=== PATIENT | male | born 1960 | race Caucasian/White ===

== ENCOUNTER 2017-03-19 12:29 | Outpatient (CLI) | payer MEDICARE, OTHER ==
[2017-03-19 12:51] LABS: BASOPHILS % (AUTO) 0.3 %; EOSINOPHILS # (AUTO) 0.4 10^3/uL (0.0-0.7); EOSINOPHILS % (AUTO) 5.2 %; HGB - HEMOGLOBIN 13.6 g/dL (14.0-18.0); LYMPHOCYTES # (AUTO) 1.9 10^3/uL (1.5-3.5); LYMPHOCYTES % (AUTO) 26.2 %; MEAN CORPUSCULAR HEMOGLOBIN 29.3 pg (27.0-31.0); MEAN CORPUSCULAR HGB CONC 33.6 g/dL (32.0-36.0); MEAN CORPUSCULAR VOLUME 87.1 fL (80.0-94.0); MEAN PLATELET VOLUME 7.9 fL (7.4-11.4); MONOCYTES # (AUTO) 0.6 10^3/uL (0.0-1.0); MONOCYTES % (AUTO) 8.8 %; NEUTROPHILS # (AUTO) 4.4 10^3/uL (1.5-6.6); NEUTROPHILS % (AUTO) 59.5 %; PLT - PLATELET COUNT 214 10^3/uL (130-450); RED BLOOD COUNT 4.66 10^6/uL (4.70-6.10); RED CELL DISTRIBUTION WIDTH 14.2 % (12.0-15.0); WHITE BLOOD COUNT 7.3 x10^3/uL (4.8-10.8)
[2017-03-19 13:03] LABS: ALBUMIN 4.4 g/dL (3.2-5.5); ALBUMIN/GLOBULIN RATIO 1.3 (1.0-2.2); BILIRUBIN,TOTAL 0.2 mg/dL (0.2-1.0); CALCIUM 9.3 mg/dL (8.5-10.3); CREATININE 0.9 mg/dL (0.6-1.2); TOTAL PROTEIN 7.7 g/dL (6.7-8.2)
[2017-03-20 13:38] LABS: HEPATITIS C ANTIBODY NON-REACTIVE (NON-REACTIVE)
== END 2017-03-19 12:30 | disposition home or self-care (01) ==
LOC: LAB 12:29
PROVIDERS: ATTEND Specialist
DX: I10 Essential (primary) hypertension (principal); Z12.11 Encounter for screening for malignant neoplasm of colon; I50.9 Heart failure, unspecified; J44.9 Chronic obstructive pulmonary disease, unspecified
CPT/HCPCS: 36415; 80053; 84153; 85025; 86803

== ENCOUNTER 2017-09-24 14:22 | Outpatient (CLI) | payer MEDICARE, OTHER | END 2017-09-24 14:23 | disposition home or self-care (01) | LOC: LAB 14:22 | PROVIDERS: ATTEND Specialist | DX: R79.89 Other specified abnormal findings of blood chemistry (principal) | CPT/HCPCS: 36415; 84403 ==

== ENCOUNTER 2018-11-25 09:56 | Outpatient (CLI) | payer MEDICARE, OTHER ==
[2018-11-25 10:48] LABS: HEMOGLOBIN A1C 0.81 g/dL; HEMOGLOBIN A1C % 7.4 % (4.6-6.2)
[2018-11-25 10:58] LABS: ALBUMIN 4.2 g/dL (3.2-5.5); ALBUMIN/GLOBULIN RATIO 1.3 (1.0-2.2); ALKALINE PHOSPHATASE 125 IU/L (42-121); ALT ALANINE AMINOTRANSFERASE 62 IU/L (10-60); AST ASPARTATE AMINOTRANSFERASE 43 IU/L (10-42); BILIRUBIN,TOTAL 0.5 mg/dL (0.2-1.0); BUN - BLOOD UREA NITROGEN 14 mg/dL (6-20); CALCIUM 9.1 mg/dL (8.5-10.3); CARBON DIOXIDE - CO2 24 mmol/L (21-32); CHLORIDE 107 mmol/L (101-111); CHOL/HDL RATIO 3.2 (<5.0); CHOLESTEROL 119 mg/dL; CREATININE 0.9 mg/dL (0.6-1.2); GFR - MDRD 86 (>89); GLUCOSE 155 mg/dL (70-100); HDL CHOLESTEROL 37 mg/dL; LDL CHOLESTEROL,CALCULATED 54 mg/dL; LDL/HDL RATIO 1.5 (<3.6); SODIUM 140 mmol/L (135-145); TOTAL PROTEIN 7.4 g/dL (6.7-8.2); VLDL CHOLESTEROL 28 mg/dL
== END 2018-11-25 09:57 | disposition home or self-care (01) ==
LOC: LAB 09:56
PROVIDERS: ATTEND Family Medicine
DX: E11.42 Type 2 diabetes mellitus with diabetic polyneuropathy (principal)
CPT/HCPCS: 36415; 80053; 80061; 83036; 83721

== ENCOUNTER 2019-02-24 11:52 | Outpatient (CLI) | payer MEDICARE, OTHER ==
[2019-02-24 12:30] LABS: ALBUMIN 4.3 g/dL (3.2-5.5); ALBUMIN/GLOBULIN RATIO 1.3 (1.0-2.2); BILIRUBIN,TOTAL 0.6 mg/dL (0.2-1.0); CALCIUM 9.2 mg/dL (8.5-10.3); CREATININE 1.1 mg/dL (0.6-1.2); TOTAL PROTEIN 7.5 g/dL (6.7-8.2)
[2019-02-24 12:54] LABS: HB2 TOTAL 13.8 g/dL; HEMOGLOBIN A1C 0.98 g/dL; HEMOGLOBIN A1C % 8.6 % (4.6-6.2)
== END 2019-02-24 11:53 | disposition home or self-care (01) ==
LOC: LAB 11:52
PROVIDERS: ATTEND Family Medicine
DX: E11.42 Type 2 diabetes mellitus with diabetic polyneuropathy (principal)
CPT/HCPCS: 36415; 80053; 83036

== ENCOUNTER 2021-02-26 10:22 | Emergency (ER) | payer MEDICARE, OTHER ==
[2021-02-26] MEDS ORDERED: IBUPROFEN 600 MG TABLET PO STA (11:20)
[2021-02-26] MEDS ORDERED: AMOX/CLAV 875 MG/125 MG TABLET PO STA (11:20)
--- NOTE | 2021-02-26 11:21 | ED Physician Documentation ---
PD HPI UPPER EXT INJURY - Stated complaint Stated Complaint: DOG BITE - Chief complaint Chief Complaint: Laceration - History obtained from History obtained from: Patient - History of Present Illness Location: Right, Hand, Finger Type of injury: Other (dog bite) Where injury occurred: Home Timing - onset: Yesterday Timing - details: Gradual onset (dog bite yesterday, with pain/swelling/redness today.) Improved by: Rest Worsened by: Moving, Palpating Associated symptoms: Swelling, Discolored (red). No: Numbness Similar symptoms before: Has not had sx before Recently seen: Not recently seen Review of Systems Constitutional: denies: Fever Neurologic: denies: Focal weakness, Numbness PD PAST MEDICAL HISTORY - Past Medical History Cardiovascular: Hypertension Respiratory: Asthma, Sleep apnea, CPAP use Endocrine/Autoimmune: None GI: None : None HEENT: None Psych: Claustrophobia Musculoskeletal: None Derm: None - Past Surgical History General: Colonoscopy Ortho: Arthroscopic surgery HEENT: Tonsil/Adenoidectomy - Present Medications Home Medications: Ambulatory Orders Medication Instructions Recorded Confirmed amLODIPine [Norvasc] 10 mg PO DAILY 01/08/13 02/27/15 Lisinopril/Hydrochlorothiazide 40 mg PO DAILY 10/04/14 02/27/15 [Lisinopril-Hctz 20-12.5 mg Tab] Doxazosin [Cardura] 2 mg PO DAILY 02/24/15 02/27/15 Amox/Clav 875/125 [Augmentin] 1 each PO Q12H #14 tablet 02/26/21 Mupirocin 2% Oint [Bactroban 2% 1 applic TOP TID #15 gm 02/26/21 Oint] - Allergies Allergies/Adverse Reactions: Allergies Allergy/AdvReac Type Severity Reaction Status Date / Time pseudoephedrine HCl * Allergy panic Verified 02/26/21 10:26 [From Sudafed] attack - Social History Does the pt smoke?: No Smoking Status: Never smoker Does the pt drink ETOH?: Yes Does the pt have substance abuse?: No PD ED PE NORMAL - Vitals Vital signs reviewed: Yes - General General: Alert and oriented X 3, Well developed/nourished, Other (ingers are hurting him) - Derm Derm: Normal color, Warm and dry - Extremities Extremities: Other (left thumb with abrasion. Right hand mainly injured with swelling and redness around punctures of thumb and index finger. No FB noted. No redness/tender/pain in wrist nor forearm.) - Neuro Neuro: Alert and oriented X 3, No motor deficit, No sensory deficit Results - Vitals Vitals: Oxygen O2 Source Room air - Rads (name of study) fingers rigth Radiology: Prelim report reviewed (no fractures nor FBs.), See rad report PD MEDICAL DECISION MAKING - ED course Complexity details: considered differential (infected bites.), d/w patient Departure - Departure Disposition: 01 Home, Self Care Clinical Impression: Wound infection Dog bite, hand Qualifiers: Encounter type: initial encounter Laterality: unspecified laterality Qualified Code(s): S61.459A - Open bite of unspecified hand, initial encounter; W54.0XXA - Bitten by dog, initial encounter Condition: Stable Record reviewed to determine appropriate education?: Yes Instructions: ED Bite Dog Follow-Up: JANETH HERNÁNDEZ MD [Primary Care Provider] - Prescriptions: Amox/Clav 875/125 [Augmentin] 1 each PO Q12H #14 tablet Mupirocin 2% Oint [Bactroban 2% Oint] 1 applic TOP TID #15 gm Comments: Your x-ray does not show any fractures or foreign bodies. Concern with the redness and swelling is infection developing from the dog bite. Rest elevate your hand often to help reduce swelling. Warm moist towels or warm soaks to improve blood flow and help cleanse the wounds. Do this several times a day. Augmentin antibiotic twice daily for the next week. Apply mupirocin topical antibiotic to the wounds 3 times a day after cleansing the wounds. Tylenol ibuprofen as needed for pains. Recheck if not improving well over the next 2 to 3 days and return sooner if worsening despite the above medicines. I transmitted your prescriptions to the [facility] here in [place]. Discharge Date/Time: 02/26/21 12:20
[2021-02-26] MEDS ORDERED: MUPIROCIN 2% OINT 1 GM TOP STA (11:56)
--- NOTE | 2021-02-26 11:57 | XRAY Report ---
PROCEDURE: Finger(s) LT INDICATIONS: dogbite thumb/index finger TECHNIQUE: PA view of the hand, PA view of the first and second fingers, and lateral views of the brenda mb and index finger. COMPARISON: None. FINDINGS: Bones: No acute fractures or dislocations. No suspicious bony lesions. Severe degenerative changes are seen in the first carpometacarpal joint with joint space during, subchondral sclerosis, and briana inal osteophyte formation. Degenerative changes are seen throughout the interphalangeal joints of the fingers. Soft tissues: No suspicious soft tissue calcifications. Focal soft tissue edema is seen in the inde x finger overlying the proximal interphalangeal joint. No radiopaque foreign body. IMPRESSION: No acute osseous abdomen. No radiopaque foreign body. If there is clinical concern or persistent symp toms, additional imaging such as repeat radiographs or advanced imaging (e.g. CT, MRI) may be helpful for further evaluation. Reviewed by: Vega Veliz MD on 02/26/2021 11:56 AM PST Approved by: Vega Veliz MD on 02/26/2021 11:56 AM PST Station ID: [id number]
[2021-02-26 12:22] VITALS: BP 140/88
== END 2021-02-26 12:20 | disposition home or self-care (01) ==
LOC: ED 10:22
DX: S61.451A Open bite of right hand, initial encounter (principal); S60.312A Abrasion of left thumb, initial encounter; L08.9 Local infection of the skin and subcutaneous tissue, unspecified; W54.0XXA Bitten by dog, initial encounter; Y92.009 Unspecified place in unspecified non-institutional (private) residence as the place of occurrence of the external cause; I10 Essential (primary) hypertension
CPT/HCPCS: 73140; 99283; A9270